=== PATIENT | female | born 1950 | race Caucasian/White ===

== ENCOUNTER 2019-08-23 22:21 | Inpatient (IN) | payer MEDICARE ==
--- NOTE | 2019-08-23 22:42 | RADIOLOGY REPORT (SQ) ---
INDICATION: s/s stroke. Left facial droop. Tremors. Difficulty speaking COMPARISON: None CORRELATION: None TECHNIQUE: Noncontrast spiral axial CT images were obtained from the skull base to vertex. This exam was performed according to our departmental dose-optimization program, which includes automated exposure control, adjustment of the mA and/or kV according to patient size and/or use of iterative reconstruction techniques. FINDINGS: There is no evidence of acute intracranial hemorrhage, midline shift, mass effect or mass lesion. Jerry-white differentiation is normal. There is no evidence of acute large territory infarct. Ventricles and extracerebral spaces are within normal limits, for age. The visualized paranasal sinuses are grossly clear. The orbits and eyeballs are unremarkable. The mastoid air cells are clear. Skull base and calvarium appear intact. IMPRESSION: No acute intracranial process is identified. The cause of the patient's neurologic symptoms is not identified on this examination.
[2019-08-23 22:48] LABS: ABSOLUTE BASOPHILS # (AUTO) 0.1 10^3/uL (0.0-0.2); ABSOLUTE EOSINOPHILS # (AUTO) 0.6 10^3/uL (0.0-0.6); ABSOLUTE LYMPHOCYTES (AUTO) 2.4 10^3/uL (0.5-4.7); ABSOLUTE MONOCYTES (AUTO) 0.4 10^3/uL (0.1-1.4); ABSOLUTE NEUT (AUTO) 5.3 10^3/uL (1.7-8.2); BASOPHILS % (AUTO) 1.1 % (0-2); EOSINOPHILS % (AUTO) 6.7 % (0-6); HEMATOCRIT 43.7 % (37.9-51.0); MEAN CORPUSCULAR HEMOGLOBIN 32.1 pg (27.0-33.4); MEAN CORPUSCULAR HGB CONC 34.4 g/dL (32.0-36.0); MEAN CORPUSCULAR VOLUME 93 fl (80-97); PLATELET COUNT 304 10^3/uL (150-450); RED BLOOD COUNT 4.69 10^6/uL (4.35-5.55); RED CELL DISTRIBUTION WIDTH 14.1 % (11.5-14.0); SEGMENTED NEUTROPHILS % (AUTO) 60.2 % (42-78); TOTAL CELLS COUNTED % (AUTO) 100 %; WHITE BLOOD COUNT 8.8 10^3/uL (4.0-10.5)
[2019-08-23 22:52] LABS: PROTHROMBIN TIME 12.1 SEC (11.4-15.4)
[2019-08-23 22:53] LABS: PARTIAL THROMBOPLASTIN TIME 22.5 SEC (23.5-35.8)
--- NOTE | 2019-08-23 22:55 | RADIOLOGY REPORT (SQ) ---
EXAM DESCRIPTION: [facility]: XR CHEST 1 VIEW CLINICAL HISTORY: 68 years Male; s/s stroke; COMPARISON: 02/24/2016 FINDINGS: Lungs are clear, with no focal infiltrate, pneumothorax, or pleural effusion. Mediastinum is within normal limits for this positioning. Bony structures are unremarkable. IMPRESSION: 1. No acute pulmonary findings.
[2019-08-23] MEDS ORDERED: ALTEPLASE INJ 100 MG VIAL IV ONE (22:59)
[2019-08-23 23:05] LABS: ALBUMIN 4.8 g/dL (3.5-5.0); ALKALINE PHOSPHATASE 89 U/L (38-126); ANION GAP 7 (5-19); ASPARTATE AMINO TRANSFERASE 26 U/L (17-59); BILIRUBIN,DIRECT 0.3 mg/dL (0.0-0.4); BILIRUBIN,TOTAL 0.4 mg/dL (0.2-1.3); BLOOD UREA NITROGEN 16 mg/dL (7-20); CALCIUM 9.5 mg/dL (8.4-10.2); CARBON DIOXIDE 28 mmol/L (22-30); CHLORIDE 101 mmol/L (98-107); CREATINE KINASE 38 U/L (55-170); GLUCOSE 170 mg/dL (75-110); POTASSIUM 4.8 mmol/L (3.6-5.0); TOTAL PROTEIN 7.3 g/dL (6.3-8.2)
[2019-08-23 23:18] LABS: TROPONIN I < 0.012 ng/mL
[2019-08-23] MEDS ORDERED: ONDANSETRON HCL INJ/PF 4 MG/2 ML SDV IV ONE (23:32)
--- NOTE | 2019-08-23 23:32 | ER Document Report ---
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 Patient last known normal at 7:30 PM on August 23, 2019 as per . Patient sent text that was a full coherent sentence at that time. Approximately half an hour prior to ED arrival patient arrived at home and found her to be altered and aphasic. states that patient has never had any prior episodes of such symptoms, was completely well prior to onset, and says patient has no history of brain cancer, brain bleed, any recent surgery, use of anticoagulation or antiplatelet therapy including aspirin, has no other medical history, and takes no medications. Associated symptoms: None - Related Data Allergies/Adverse Reactions: Penicillins Allergy (Severe, Verified 02/24/16 12:07) Anaphylaxis Sulfa (Sulfonamide Antibiotics) Allergy (Unknown, Verified 02/24/16 12:07) Anaphylaxis Past Medical History - General Information source: Relative - Social History Smoking Status: Unknown if Ever Smoked Family History: None - Past Medical History Cardiac Medical History: Reports: None Pulmonary Medical History: Reports: None Neurological Medical History: Reports: None Endocrine Medical History: Reports: None Other: leukoplakia Psychiatric Medical History: Reports: None Other: distant rotator cuff surgery Review of Systems - Review of Systems -: Yes ROS unobtainable due to patient's medical condition Physical Exam - Vital signs Vitals: Pulse Resp BP Pulse Ox 107 H 22 H 135/96 H 97 08/23/19 22:24 08/23/19 22:24 08/23/19 22:24 08/23/19 22:24 - Notes Notes: PHYSICAL EXAMINATION: GENERAL: Awake, alert, and in no acute distress. HEAD: Atraumatic, normocephalic. EYES: Pupils equal round and reactive, extra ocular movements intact, sclera anicteric, conjunctiva are normal. ENT: nares patent, moist mucous membranes. NECK: Normal range of motion, supple without lymphadenopathy, no carotid bruit LUNGS: Normal respiratory rate and effort, breath sounds clear to auscultation bilaterally and equal. No wheezes rales or rhonchi. HEART: Regular rate, no murmurs/rubs/gallops ABDOMEN: Soft, nontender, no masses EXTREMITIES: No pitting or edema. No cyanosis. NEUROLOGICAL: Awake, alert, oriented x0 2/2 aphasia. NIHSS 14 for aphasic, partial gaze palsy can be overcome, minor facial paralysis (right lower mild facial droop), right arm and right leg drift not hitting bed, ataxia in two limbs, no usable speech, severe dysarthria, and visual inattention. 5/5 strength in left arm and leg, 4/5 in right arm and leg. PSYCH: unable to assess 2/2 aphasia SKIN: Warm, Dry, normal turgor Course - Re-evaluation Re-evalutation: 08/23/19 23:59 On initial evaluation patient found to be a phasic and have right-sided weakness upper and lower with a right facial droop. Patient had CAT scan which showed no bleed and was brought to minor procedures room where I performed an NIH stroke scale which was 14. After lengthy discussion with patient's by phone, patient found to be a TPA candidate given lack of medical history precluding her , BP appropriate, fingerstick appropriate. Discussed the risks of TPA with patient's who is her next of kin as patient unable to consent given a aphasia. Explained to the risk of a debilitating or fatal bleed as a result of TPA and and discussed with him alternative treatment which was not administering TPA. consented to TPA over the phone and this consent was confirmed by ROSETTA Carrillo who also spoke to confirming his approval. TPA was administered as per protocol and ICU consulted at 11:17 PM. Patient's family allowed to see patient given critical condition. 08/24/19 00:24 On serial repeat examinations patient's right and leg and arm weakness appears to have improved but aphasia remains unchanged. We will continue to monitor BP, has been elevated intermittently but not consistently enough to require intervention yet. Patient accepted to ICU. Patient son and now in ED, discussed patient's status, prognosis, and treatment plan with them both at length. - Vital Signs Vital signs: Temp Pulse Resp BP Pulse Ox 97.8 F 74 16 142/67 H 96 08/24/19 01:46 08/24/19 01:48 08/24/19 01:48 08/24/19 01:48 08/24/19 01:48 - Laboratory Result Diagrams: 08/23/19 22:25 08/23/19 22:25 Laboratory results interpreted by me: 08/23/19 08/23/19 08/23/19 22:25 22:25 22:25 RDW 14.1 H Eos % (Auto) 6.7 H APTT 22.5 L Sodium 136.1 L Glucose 170 H POC Glucose Creatine Kinase 38 L 08/23/19 22:33 RDW Eos % (Auto) APTT Sodium Glucose POC Glucose 147 H Creatine Kinase Critical Care Note - Critical Care Note Comments: 31 minutes spent at patient's bedside administering serial NIH stroke scale exams, discussing informed consent, patient status, and obtaining history from patient's family. Discharge - Discharge Clinical Impression: Stroke Qualifiers: CVA mechanism: unspecified Qualified Code(s): I63.9 - Cerebral infarction, unspecified Condition: Critical Disposition: ADMITTED INPATIENT Admitting Provider: Jessa (Regulatory Law Specialist) Unit Admitted: ICU
--- NOTE | 2019-08-24 03:02 | CRITICAL CARE ADMISSION REPORT ---
<ROBERT HODGES - Last Filed: 08/24/19 02:40> HPI Date:: 08/24/19 Time:: 02:00 Reason for ICU Reason:: Cerebral Vascular Accident HPI: 68-year-old female with no significant past medical history. She has a normal baseline mental status and is completely independent. She presented with 3 hours of altered mental status, aphasia and weakness. Upon evaluation in the ED, her NIH stroke scale was 14. CAT scan showed no bleed. She was started on TPA and has shown some mild improvement in her mental status. She continues to have right-sided weakness with right-sided facial droop. She follows commands well but has expressive aphasia. Left-sided upper and lower extremity with normal strength. She was admitted to the intensive care unit due to TPA therapy and close monitoring. History obtained from:: - Diagnosis/Plan (1) Stroke Qualifiers: CVA mechanism: unspecified Qualified Code(s): I63.9 - Cerebral infarction, unspecified Is this a current diagnosis for this admission?: Yes Plan: Status post TPA Continue close monitoring with mend exam every 15 minutes x2 hours followed by 30 minutes x 6 hours followed by every 1 hour x16 hours. Monitor closely for signs of bleeding Patient to remain n.p.o. for now. Avoid sedating medications unless required for any seizure activity. Maintain SPO2 greater than 95%. Past Medical History Cardiac Medical History: Reports: None Pulmonary Medical History: Reports: None Neurological Medical History: Reports: None Endocrine Medical History: Reports: None Psychiatric Medical History: Reports: None Past Surgical History Past Surgical History: Reports: Orthopedic Surgery - right rotator cuff Social/Family History - Social History Smoking Status: Unknown if Ever Smoked - Medication/Allergies Home Medications: No Home Medications 08/24/19 Allergies/Adverse Reactions: Penicillins Allergy (Severe, Verified 02/24/16 12:07) Anaphylaxis Sulfa (Sulfonamide Antibiotics) Allergy (Unknown, Verified 02/24/16 12:07) Anaphylaxis Review of Systems Gastrointestinal: ABSENT: melena Genitourinary: ABSENT: hematuria Neurological: PRESENT: as per HPI, abnormal movements, abnormal speech, focal weakness Hematologic/Lymphatic: ABSENT: easy bleeding Physical Exam Vital Signs: Temp Pulse Resp BP Pulse Ox 98.2 F 73 12 149/63 H 98 08/24/19 00:00 08/24/19 01:11 08/24/19 01:11 08/24/19 01:11 08/24/19 01:11 Intake & Output 08/22/19 08/23/19 08/24/19 06:59 06:59 06:59 Weight 65.771 kg Weight/Height Weight 65.771 kg Height 5 ft 1 in Head exam: PRESENT: atraumatic, normocephalic Eye exam: PRESENT: EOMI, PERRLA Mouth exam: PRESENT: neck supple Neck exam: ABSENT: carotid bruit, JVD Respiratory exam: PRESENT: symmetrical, unlabored. ABSENT: accessory muscle use, rales, rhonchi, tachypnea, wheezes Cardiovascular exam: PRESENT: RRR Vascular exam: PRESENT: normal capillary refill GI/Abdominal exam: PRESENT: normal bowel sounds, soft Extremities exam: PRESENT: full ROM Neurological exam: PRESENT: awake, aphasic Skin exam: PRESENT: normal color, warm Laboratory/Radiographs Laboratory Results: 08/23/19 22:25 08/23/19 22:25 08/23/19 08/23/19 22:25 22:25 WBC 8.8 RBC 4.69 Hgb 15.0 Hct 43.7 MCV 93 MCH 32.1 MCHC 34.4 RDW 14.1 H Plt Count 304 Seg Neutrophils % 60.2 Sodium 136.1 L Potassium 4.8 Chloride 101 Carbon Dioxide 28 Anion Gap 7 BUN 16 Creatinine 0.71 Est GFR ( Amer) > 60 Glucose 170 H Calcium 9.5 Total Bilirubin 0.4 AST 26 Alkaline Phosphatase 89 Total Protein 7.3 Albumin 4.8 08/23/19 08/23/19 22:25 22:25 Creatine Kinase 38 L CK-MB (CK-2) 0.60 Troponin I < 0.012 Impressions: Chest X-Ray 08/23/19 22:24 IMPRESSION: 1. No acute pulmonary findings. Head CT 08/23/19 22:24 IMPRESSION: No acute intracranial process is identified. The cause of the patient's neurologic symptoms is not identified on this examination. All labs, radiographs, diagnostic studies and EKGs were personally reviewed: Yes In addition, reports of radiographic and diagnostic studies were read: Yes Critical Time Critical Time (minutes): 65 -: The care of a critically ill patient is dynamic. This note represents a static moment in the admission process. Orders and treatments may be given simultaneously and urgently, and time is not liability claims representative of the treatment process. This patient requires Critical Care secondary to life threatening organ or limb dysfunction. Without Critical Care services, the patient is at risk for increased mortality and morbidity. <SUJATA PEREA - Last Filed: 08/24/19 17:16> HPI - . Plan Summary: I personally saw and evaluated the patient. Discussed case and care with FIFI Hodges. Agree with care plans and findings We see my note which accompanies this note due to the complex nature of this case. Physical Exam Vital Signs: Temp Pulse Resp BP Pulse Ox 98.8 F 89 17 154/82 H 93 08/24/19 16:00 08/24/19 16:00 08/24/19 16:00 08/24/19 15:56 08/24/19 16:00 Intake & Output 08/23/19 08/24/19 08/25/19 06:59 06:59 06:59 Output Total 350 1100 Balance -350 -1100 Weight 67.3 kg Weight/Height Weight 67.3 kg Height 5 ft 1 in Laboratory/Radiographs Laboratory Results: 08/24/19 06:57 08/24/19 06:57 08/23/19 08/23/19 08/24/19 22:25 22:25 06:57 WBC 8.8 9.4 RBC 4.69 4.30 Hgb 15.0 13.7 Hct 43.7 39.8 MCV 93 93 MCH 32.1 31.8 MCHC 34.4 34.3 RDW 14.1 H 14.2 H Plt Count 304 275 Seg Neutrophils % 60.2 Sodium 136.1 L Potassium 4.8 Chloride 101 Carbon Dioxide 28 Anion Gap 7 BUN 16 Creatinine 0.71 Est GFR ( Amer) > 60 Glucose 170 H Calcium 9.5 Total Bilirubin 0.4 AST 26 Alkaline Phosphatase 89 Total Protein 7.3 Albumin 4.8 08/24/19 06:57 WBC RBC Hgb Hct MCV MCH MCHC RDW Plt Count Seg Neutrophils % Sodium 137.1 Potassium 4.6 Chloride 103 Carbon Dioxide 29 Anion Gap 5 BUN 15 Creatinine 0.55 Est GFR ( Amer) > 60 Glucose 115 H Calcium 9.1 Total Bilirubin AST Alkaline Phosphatase Total Protein Albumin 08/23/19 08/23/19 22:25 22:25 Creatine Kinase 38 L CK-MB (CK-2) 0.60 Troponin I < 0.012 Impressions: Chest X-Ray 08/23/19 22:24 IMPRESSION: 1. No acute pulmonary findings. Head CT 08/23/19 22:24 IMPRESSION: No acute intracranial process is identified. The cause of the patient's neurologic symptoms is not identified on this examination. Head CTA 08/24/19 00:00 IMPRESSION: NO CTA EVIDENCE OF STENOSIS OR ANEURYSM OF THE [place] OF [place]. Neck CTA 08/24/19 00:00 IMPRESSION: NORMAL CTA OF THE EXTRA-CRANIAL CAROTID AND VERTEBRAL ARTERIES. Critical Time -: The care of a critically ill patient is dynamic. This note represents a static moment in the admission process. Orders and treatments may be given simultaneously and urgently, and time is not liability claims representative of the treatment process. This patient requires Critical Care secondary to life threatening organ or limb dysfunction. Without Critical Care services, the patient is at risk for increased mortality and morbidity.
[2019-08-24] MEDS ORDERED: DEXTROSE 50%-WATER 25 GM/50 ML DISP.SYRIN IV PRN ×2 (03:53)
[2019-08-24] MEDS ORDERED: DEXTROSE 40% GEL 15 GM TUBE PO PRN ×2 (03:53)
[2019-08-24] MEDS ORDERED: GLUCAGON,HUMAN RECOMB 1 MG INJ SUBCUT PRN (03:53)
[2019-08-24 07:11] LABS: HEMATOCRIT 39.8 % (36.0-47.0); HEMOGLOBIN 13.7 g/dL (12.0-15.5); MEAN CORPUSCULAR HEMOGLOBIN 31.8 pg (27.0-33.4); MEAN CORPUSCULAR HGB CONC 34.3 g/dL (32.0-36.0); MEAN CORPUSCULAR VOLUME 93 fl (80-97); PLATELET COUNT 275 10^3/uL (150-450); RED CELL DISTRIBUTION WIDTH 14.2 % (11.5-14.0); WHITE BLOOD COUNT 9.4 10^3/uL (4.0-10.5)
[2019-08-24 07:23] LABS: ANION GAP 5 (5-19); BLOOD UREA NITROGEN 15 mg/dL (7-20); CALCIUM 9.1 mg/dL (8.4-10.2); CARBON DIOXIDE 29 mmol/L (22-30); CHLORIDE 103 mmol/L (98-107); GLUCOSE 115 mg/dL (75-110); POTASSIUM 4.6 mmol/L (3.6-5.0)
--- NOTE | 2019-08-24 10:05 | RADIOLOGY REPORT (SQ) ---
EXAM DESCRIPTION: CTA HEAD IMAGES COMPLETED DATE/TIME: 08/24/2019 8:58 am REASON FOR STUDY: Mental Status Change COMPARISON: None. TECHNIQUE: Post IV contrast scanning, thin section axial imaging through the brain to evaluate the a rterial structures. Source and MIP images are saved and reviewed on PACS. Advanced 3D imaging as volume-rendering, MIPs, SSD performed? yes All CT scanners at this facility use dose modulation, iterative reconstruction, and/or weight based d osing when appropriate to reduce radiation dose to as low as reasonably achievable (ALARA). [facility]: Dose Right [facility]: CareDose [facility]: Dose Right [facility]: Teradose 4D [facility]: Picovico CONTRAST TYPE AND DOSE: 80 mL Omnipaque 350 RENAL FUNCTION: Not available at time of dictation. LIMITATIONS: None. FINDINGS: [place]: The anterior, middle, posterior cerebral arteries are all patent. No ev idence of aneurysm or focal stenosis. POSTERIOR CIRCULATION: The distal vertebral arteries are patent as is the basilar artery. No aneurysm . BRAIN: No gross enhancing lesions as visualized. The superior cerebral hemispheres are not included in the field of view. BONES: Intact as visualized. SINUSES: No fluid or mucosal thickening. OTHER: No other significant finding. IMPRESSION: NO CTA EVIDENCE OF STENOSIS OR ANEURYSM OF THE [place]. TECHNICAL DOCUMENTATION: JOB ID: [id number] Quality ID # 436: Final reports with documentation of one or more dose reduction techniques (e.g., Au tomated exposure control, adjustment of the mA and/or kV according to patient size, use of iterative reconstruction technique) 2010 [employer]- All Rights Reserved Reading location - IP/workstation name: [email or web address]
--- NOTE | 2019-08-24 10:06 | RADIOLOGY REPORT (SQ) ---
EXAM DESCRIPTION: CTA NECK IMAGES COMPLETED DATE/TIME: 08/24/2019 8:58 am REASON FOR STUDY: Mental Status Change COMPARISON: None. TECHNIQUE: Axial dynamic scanning technique with dynamic contrast enhancement through the extra-gantry crane operator nial carotid and vertebral arteries. Multiplanar reconstruction. 3-D MIPS and Volume-rendered imag es acquired at the workstation and saved to PACS. Images are reviewed in soft tissue, bone, lung w indows. All CT scanners at this facility use dose modulation, iterative reconstruction, and/or weight based d osing when appropriate to reduce radiation dose to as low as reasonably achievable (ALARA). [facility]: Dose Right [facility]: CareDose [facility]: Dose Right [facility]: Teradose 4D [facility]: Reconnex CONTRAST TYPE AND DOSE: contrast/concentration: Isovue 350.00 mg/ml; Total Contrast Delivered: 80.0 ml; Total Saline Delivered: 75.0 ml RENAL FUNCTION: Not available at time of dictation. LIMITATIONS: None. FINDINGS: AORTIC ARCH: Normal three-vessel origin. Bilateral subclavian arteries are patent. No d issection. RIGHT CAROTIDS: Patent common, internal and external carotid arteries without suggestion of significa nt stenosis or irregular plaque. No dissection. RIGHT VERTEBRAL: Patent. No dissection. LEFT CAROTIDS: Patent common, internal and external carotid arteries without suggestion of significan t stenosis or irregular plaque. No dissection. The left internal carotid artery is very tortuous. LEFT VERTEBRAL: Patent. No dissection. OTHER: No other significant finding. OTHER: 3-D reconstructions confirm findings. IMPRESSION: NORMAL CTA OF THE EXTRA-CRANIAL CAROTID AND VERTEBRAL ARTERIES. COMMENT: Quality ID #[id number]: Measurements of distal internal carotid diameter were used as the denomina tor for stenosis measurement. TECHNICAL DOCUMENTATION: JOB ID: [id number] Quality ID # 436: Final reports with documentation of one or more dose reduction techniques (e.g., Au tomated exposure control, adjustment of the mA and/or kV according to patient size, use of iterative reconstruction technique) 2010 [employer]- All Rights Reserved Reading location - IP/workstation name: [email or web address]
--- NOTE | 2019-08-24 10:07 | EKG REPORT ---
SEVERITY:- NORMAL ECG - SINUS RHYTHM : Confirmed by: Grace Carpenter MD 24-Aug-2019 10:06:50
--- NOTE | 2019-08-24 22:01 | Progress Note ---
Provider Note Provider Note: Urgently saw and evaluated and examined this patient in follow-up to [facility]. We will plan findings and care. My evaluation NIH score is 4. Speech has improved and is only minimally slurred and affected with certain words. She had an earlier headache which is improved and was noted over her left eye Review of CT scan showed no evidence of ischemia and I asked for CT angiogram of the neck and cerebral vessels. Unfortunately there is no availability for perfusion studies. No demonstrable large artery obstruction was noted. She denies any chest pain. No shortness of breath. Have ordered echocardiogram, physical therapy and Occupational Therapy as well as speech eval. Need to start antiplatelet and statin therapy 24 hours after TPA was given. She needs to be maintained in the ICU secondary to the use of TPA. Should any neurological decline occur she will need to be sent back to CT scan to rule out bleed. We will have case management involved for rehabilitation. New cardiac monitoring to determine if atrial fibrillation is a cause. Cardiogram as noted above. Have ordered urine specimen notably female patients with stroke symptoms can have urinary tract infections which precede the ictus We will remove Mayorga after the 24-hour TPA. Has resolved. Keep blood pressure below 180. Heart antihypertensive therapy within 24 hours. Total critical care time 60 minutes in evaluation the patient repeat neurological exam and evaluation of radiographic studies
[2019-08-25 01:42] LABS: APPEARANCE,URINE SLIGHTLY-CLOUDY; BILIRUBIN,URINE NEGATIVE (NEGATIVE); COLOR,URINE YELLOW; GLUCOSE, URINE NEGATIVE (NEGATIVE); KETONES,URINE 80 mg/dL (NEGATIVE); PROTEIN,URINE 30 mg/dL (NEGATIVE); URINE SPECIFIC GRAVITY 1.029; UROBILINOGEN,URINE NEGATIVE mg/dL (<2.0)
[2019-08-25 04:17] LABS: ABSOLUTE BASOPHILS # (AUTO) 0.1 10^3/uL (0.0-0.2); ABSOLUTE EOSINOPHILS # (AUTO) 0.3 10^3/uL (0.0-0.6); ABSOLUTE LYMPHOCYTES (AUTO) 2.6 10^3/uL (0.5-4.7); ABSOLUTE MONOCYTES (AUTO) 0.8 10^3/uL (0.1-1.4); ABSOLUTE NEUT (AUTO) 6.8 10^3/uL (1.7-8.2); BASOPHILS % (AUTO) 0.7 % (0-2); EOSINOPHILS % (AUTO) 2.8 % (0-6); HEMATOCRIT 40.6 % (36.0-47.0); LYMPHOCYTES % (AUTO) 24.6 % (13-45); MEAN CORPUSCULAR HEMOGLOBIN 31.6 pg (27.0-33.4); MEAN CORPUSCULAR HGB CONC 34.4 g/dL (32.0-36.0); MEAN CORPUSCULAR VOLUME 92 fl (80-97); MONOCYTES % (AUTO) 7.4 % (3-13); PLATELET COUNT 267 10^3/uL (150-450); RED BLOOD COUNT 4.43 10^6/uL (3.72-5.28); RED CELL DISTRIBUTION WIDTH 14.2 % (11.5-14.0); SEGMENTED NEUTROPHILS % (AUTO) 64.5 % (42-78); TOTAL CELLS COUNTED % (AUTO) 100 %; WHITE BLOOD COUNT 10.5 10^3/uL (4.0-10.5)
[2019-08-25] MEDS ORDERED: RINGERS SOLUTION,LACTATED 1,000 ML IV PRN (04:18)
[2019-08-25 04:39] LABS: ANION GAP 6 (5-19); BLOOD UREA NITROGEN 15 mg/dL (7-20); CALCIUM 9.2 mg/dL (8.4-10.2); CARBON DIOXIDE 26 mmol/L (22-30); CHLORIDE 105 mmol/L (98-107); GLUCOSE 101 mg/dL (75-110); PHOSPHORUS 3.7 mg/dL (2.5-4.5); POTASSIUM 4.1 mmol/L (3.6-5.0); TRIGLYCERIDES 102 mg/dL (<150)
[2019-08-25 04:49] LABS: DIRECT LDL 192 mg/dL (<100)
--- NOTE | 2019-08-25 11:09 | Progress Note ---
Provider Note Provider Note: 68-year-old female with no significant past medical history came to the emergency room on August 22 around midnight with complaints of 3 hours of altered mental status, aphasia and weakness. Her NIH stroke scale is [address] scan did not show any bleed. Patient was given TPA and was admitted to ICU. Medical consult was called to downgrade the patient today. Patient's aphasia resolved right-sided weakness improving mild residual deficit in the right arm. Still have visual problems difficulty in reading. But she is able to count my fingers when I am standing 10 feet away. CTA of the head and neck are negative. Plan is to do the MRI of the brain today to start her on aspirin, Plavix and statins.Echocardiogram was requested and it is pending. OT PT consult was requested. To discontinue IV fluids. And to start on her blood pressure medications if the blood pressures are persistently high. On examination alert and awake communicating well. Pupils are equal and react to light accommodation. Neck was supple no JVD no carotid bruit. Chest bilateral entry was decreased no wheezing no crepitations. S1-S2 present. Abdominal bowel sounds are present. Extremities peripheral pulses are present no pedal edema. Plan is to downgrade her to IMCU today. To repeat the labs tomorrow.
[2019-08-25] MEDS: ASPIRIN 81 MG TABLET, CHEWABLE PO SCH (12:18)
[2019-08-25] MEDS: CLOPIDOGREL BISULFATE 75 MG TABLET PO SCH (12:18)
--- NOTE | 2019-08-25 13:40 | RADIOLOGY REPORT (SQ) ---
EXAM DESCRIPTION: MRI HEAD WITHOUT IMAGES COMPLETED DATE/TIME: 08/25/2019 1:21 pm REASON FOR STUDY: stroke COMPARISON: None. TECHNIQUE: Multiplanar imaging includes non-contrasted T1, T2, FLAIR, and diffusion with ADC map seq uences. Images stored on PACS. LIMITATIONS: None. FINDINGS: ANATOMY: No anomalies. Normal vascular flow voids. Pituitary fossa normal. CSF SPACES: Normal in size and contour. No hemorrhage. CEREBRUM: Sulci and gyri normal in size and contour. Increased FLAIR and T2 signal in the medial lef t occipital and temporal lobe and in the posterior left thalamus. No evidence of hemorrhage, mass, o r extraaxial fluid collection. POSTERIOR FOSSA: No signal alteration. No hemorrhage. No edema, masses or mass effect. Internal sarthak tory canals, cerebello-pontine angles, mastoids normal. DIFFUSION IMAGING: Restricted diffusion in the medial left occipital and temporal lobe and in the pos terior left thalamus. ORBITS: No masses. Globes normal. PARANASAL SINUSES: No fluid levels. Mucosa normal. OTHER: No other significant finding. IMPRESSION: INVOLVING INFARCT IN THE MEDIAL LEFT OCCIPITAL AND TEMPORAL LOBE AND IN THE POSTERIOR LE FT THALAMUS. EVIDENCE OF ACUTE STROKE: YES. LEFT ACADEMIC REGISTRAR COMMENT: The findings were sent to the Radiology Results Communication Center at 13:33 on 08/25/2019 to be communicated to a licensed caregiver. TECHNICAL DOCUMENTATION: JOB ID: [id number] 2010 [employer]- All Rights Reserved Reading location - IP/workstation name: [email or web address]
--- NOTE | 2019-08-25 13:43 | RADIOLOGY REPORT (SQ) ---
EXAM DESCRIPTION: MRA HEAD WITHOUT IMAGES COMPLETED DATE/TIME: 08/25/2019 1:21 pm REASON FOR STUDY: stroke COMPARISON: CTA dated 08/24/2019. TECHNIQUE: Axial 3-D [id number] acquisition imaging performed through the brain in the area of t he [place] of [place]. Images reformatted using 3-D MIPS. LIMITATIONS: None. FINDINGS: SOURCE IMAGES: No unexpected findings on source images. No large masses. 3-D MIP: No aneurysm. No occlusions. No significant stenosis. OTHER: No other significant finding. IMPRESSION: NORMAL MRA OF THE [place] OF [place]. TECHNICAL DOCUMENTATION: JOB ID: [id number] 2010 [employer]- All Rights Reserved Reading location - IP/workstation name: [email or web address]
[2019-08-25] MEDS: PANTOPRAZOLE SODIUM 40 MG TABLET.DR PO SCH (16:52)
[2019-08-25] MEDS: ATORVASTATIN CALCIUM 40 MG TABLET PO SCH (21:35)
--- NOTE | 2019-08-25 21:50 | XCELERA REPORT ---
[address] [address] Transthoracic Echocardiogram Report Name: YOSEF HOLLIS Age: 68 yrs Gender: Female : 1950 Patient Status: Inpatient Patient Location: [address] [place], [place] [id number] Study Date: 08/25/2019 01:40 PM Height: 61 in Weight: 148 lb BSA: 1.7 m2 Procedure: A two-dimensional transthoracic echocardiogram with color flow and Doppler was performed. Study Quality: Poor. POOR ENDOCARDIAL VISUALISATION. Reason For Study: STROKE / CVA History: STROKE / CVA. Ordering Physician: SUJATA PEREA Performed By: Cheli Doan Interpretation Summary There is no obvious cardiac source of embolus noted on this transthoracic echocardiogram. Follow-up with a LUIS ARMANDO is suggested if cardiac source is still suspected. POOR ENDOCARDIAL VISUALISATION. The left ventricle is normal in size. There is normal left ventricular wall thickness. LV EF is Probably 60% Left ventricular systolic function is normal. Doppler measurements suggest impaired left ventricular relaxation, which is associated with grade I/IV or mild diastolic dysfunction Probably no regional wall motion abnormality. The right ventricle is not well visualized secondary to technical limitations Right atrium not well visualized secondary to technical limitations There is no evidence of mitral valve prolapse. There is no vegetation seen on the mitral valve. There is no mitral valve stenosis. There is a trace amount of mitral regurgitation There is no aortic valvular vegetation. There is no aortic valve stenosis There is no LVOT obstruction. No aortic regurgitation is present. There is no tricuspid stenosis. Probably no TR.Cannot assess RVSP due to lack of TR jet. There is no pulmonic valvular stenosis. There is a trace amount of pulmonic regurgitation The aortic root is normal size. The inferior vena cava appeared normal and decreased > 50% with respiration (RAP 5-10 mmHg) There is no pericardial effusion. There is no obvious cardiac source of embolus noted on this transthoracic echocardiogram. Follow-up with a LUIS ARMANDO is suggested if cardiac source is still suspected No ASD , VSD ,or PFO seen.Probable mild interatrial septal lipomatous hypertrophy. MMode/2D Measurements & Calculations RVDd: 1.7 cm LVIDd: 4.6 cm FS: 31.4 % Ao root diam: 2.8 cm IVSd: 0.96 cm LVIDs: 3.1 cm EDV(Teich): 96.4 ml Ao root area: 6.2 cm2 LVPWd: 0.80 cm ESV(Teich): 39.2 ml EF(Teich): 59.4 % Doppler Measurements & Calculations MV E max felipe: MV dec slope: Ao V2 max: LV V1 max P.2 cm/sec 385.6 cm/sec2 133.5 cm/sec 4.6 mmHg MV A max felipe: MV dec time: 0.22 sec Ao max PG: LV V1 max: 96.1 cm/sec 7.1 mmHg 106.9 cm/sec MV E/A: 0.87 PA V2 max: PI end-d felipe: 75.5 cm/sec 73.7 cm/sec PA max P.3 mmHg Left Ventricle The left ventricle is normal in size. There is normal left ventricular wall thickness. LV EF is Probably 60%. Left ventricular systolic function is normal. Doppler measurements suggest impaired left ventricular relaxation, which is associated with grade I/IV or mild diastolic dysfunction. Probably no regional wall motion abnormality. No ASD , VSD ,or PFO seen.Probable mild interatrial septal lipomatous hypertrophy. Right Ventricle The right ventricle is not well visualized secondary to technical limitations. Atria Right atrium not well visualized secondary to technical limitations. The left atrial size is normal. Mitral Valve There is no evidence of mitral valve prolapse. There is no vegetation seen on the mitral valve. There is no mitral valve stenosis. There is a trace amount of mitral regurgitation. Aortic Valve There is no aortic valvular vegetation. There is no aortic valve stenosis. There is no LVOT obstruction. No aortic regurgitation is present. Tricuspid Valve There is no tricuspid stenosis. Probably no TR.Cannot assess RVSP due to lack of TR jet. Pulmonic Valve There is no pulmonic valvular stenosis. There is a trace amount of pulmonic regurgitation. Great Vessels The aortic root is normal size. The inferior vena cava appeared normal and decreased > 50% with respiration (RAP 5-10 mmHg). Effusions There is no pericardial effusion. : SUJATA PEREA Lakshmi
[2019-08-26 05:32] LABS: ABSOLUTE BASOPHILS # (AUTO) 0.1 10^3/uL (0.0-0.2); ABSOLUTE EOSINOPHILS # (AUTO) 0.4 10^3/uL (0.0-0.6); ABSOLUTE LYMPHOCYTES (AUTO) 3.4 10^3/uL (0.5-4.7); ABSOLUTE MONOCYTES (AUTO) 0.7 10^3/uL (0.1-1.4); ABSOLUTE NEUT (AUTO) 4.5 10^3/uL (1.7-8.2); BASOPHILS % (AUTO) 0.9 % (0-2); EOSINOPHILS % (AUTO) 4.7 % (0-6); HEMATOCRIT 39.2 % (36.0-47.0); HEMOGLOBIN 13.6 g/dL (12.0-15.5); LYMPHOCYTES % (AUTO) 36.9 % (13-45); MEAN CORPUSCULAR HEMOGLOBIN 31.7 pg (27.0-33.4); MEAN CORPUSCULAR HGB CONC 34.6 g/dL (32.0-36.0); MEAN CORPUSCULAR VOLUME 92 fl (80-97); PLATELET COUNT 251 10^3/uL (150-450); RED BLOOD COUNT 4.28 10^6/uL (3.72-5.28); RED CELL DISTRIBUTION WIDTH 13.7 % (11.5-14.0); SEGMENTED NEUTROPHILS % (AUTO) 49.5 % (42-78); TOTAL CELLS COUNTED % (AUTO) 100 %; WHITE BLOOD COUNT 9.1 10^3/uL (4.0-10.5)
[2019-08-26 05:54] LABS: ALKALINE PHOSPHATASE 71 U/L (38-126); ASPARTATE AMINO TRANSFERASE 21 U/L (14-36); BILIRUBIN,TOTAL 0.8 mg/dL (0.2-1.3); BLOOD UREA NITROGEN 11 mg/dL (7-20); CALCIUM 9.2 mg/dL (8.4-10.2); CARBON DIOXIDE 28 mmol/L (22-30); CHLORIDE 103 mmol/L (98-107); GLUCOSE 99 mg/dL (75-110); POTASSIUM 4.2 mmol/L (3.6-5.0); TOTAL PROTEIN 6.5 g/dL (6.3-8.2)
[2019-08-26 06:09] LABS: ANION GAP 5 (5-19)
[2019-08-26] MEDS: PANTOPRAZOLE SODIUM 40 MG TABLET.DR PO SCH ×2 (06:38→17:33)
--- NOTE | 2019-08-26 07:55 | PDOC PROGRESS REPORT ---
Subjective Progress Note for:: 08/26/19 Subjective:: 08/26/[id number]f-old female with no significant past medical history admitted with aphasia, right-sided weakness, altered mental status. CT head is negative in the ER a TPA was given. CT a of the head and neck was done negative for acute pathology. MRI of the brain without contrast was done it indicates new infarct. Was started on aspirin, Plavix, statins 24 hours after administration of the TPA. PT OT consult was done [facility] This morning alert awake communicating well not in distress. Still have visual problems and slight droop on the left side of the face and mild weakness on the right upper arm. blood Pressures are stable. Reason For Visit: CEREBRAL VASCULAR ACCIDENT Physical Exam Vital Signs: Temp Pulse Resp BP Pulse Ox 98.8 F 78 18 144/71 H 93 08/26/19 03:49 08/26/19 07:00 08/26/19 07:00 08/26/19 07:00 08/26/19 07:00 Intake & Output 08/25/19 08/26/19 08/27/19 06:59 06:59 06:59 Intake Total 1240 Output Total 1515 1540 Balance -1515 -300 Weight 67.3 kg 67.3 kg General appearance: PRESENT: no acute distress, well-developed Head exam: PRESENT: atraumatic Eye exam: PRESENT: PERRLA Ear exam: PRESENT: normal external ear exam Mouth exam: PRESENT: moist, tongue midline Neck exam: ABSENT: carotid bruit, JVD, lymphadenopathy, thyromegaly Respiratory exam: PRESENT: clear to auscultation stephanie. ABSENT: rales, rhonchi, wheezes Cardiovascular exam: PRESENT: RRR. ABSENT: diastolic murmur, rubs, systolic murmur GI/Abdominal exam: PRESENT: normal bowel sounds, soft. ABSENT: distended, guarding, mass, organolmegaly, rebound, tenderness Rectal exam: PRESENT: deferred Extremities exam: PRESENT: full ROM. ABSENT: calf tenderness, clubbing, pedal edema Neurological exam: PRESENT: alert, awake, oriented to person, oriented to place, oriented to time, oriented to situation, other - ACAs resolved mild weakness in the right upper arm and still having the mild visual problems.. ABSENT: motor sensory deficit Psychiatric exam: PRESENT: appropriate affect, normal mood. ABSENT: homicidal ideation, suicidal ideation Skin exam: PRESENT: dry, intact, warm. ABSENT: cyanosis, rash Results Laboratory Results: 08/26/19 04:40 08/26/19 04:40 08/26/19 08/26/19 04:40 04:40 WBC 9.1 RBC 4.28 Hgb 13.6 Hct 39.2 MCV 92 MCH 31.7 MCHC 34.6 RDW 13.7 Plt Count 251 Seg Neutrophils % 49.5 Sodium 136.3 L Potassium 4.2 Chloride 103 Carbon Dioxide 28 Anion Gap 5 BUN 11 Creatinine 0.60 Est GFR ( Amer) > 60 Glucose 99 Calcium 9.2 Magnesium 2.2 Total Bilirubin 0.8 AST 21 Alkaline Phosphatase 71 Total Protein 6.5 Albumin 4.0 08/23/19 08/23/19 22:25 22:25 Creatine Kinase 38 L CK-MB (CK-2) 0.60 Troponin I < 0.012 Impressions: Chest X-Ray 08/23/19 22:24 IMPRESSION: 1. No acute pulmonary findings. Head CT 08/23/19 22:24 IMPRESSION: No acute intracranial process is identified. The cause of the patient's neurologic symptoms is not identified on this examination. Head CTA 08/24/19 00:00 IMPRESSION: NO CTA EVIDENCE OF STENOSIS OR ANEURYSM OF THE [place]. Neck CTA 08/24/19 00:00 IMPRESSION: NORMAL CTA OF THE EXTRA-CRANIAL CAROTID AND VERTEBRAL ARTERIES. Brain MRI with MRA 08/25/19 00:00 IMPRESSION: NORMAL MRA OF THE [place]. Head MRI 08/25/19 11:00 IMPRESSION: INVOLVING INFARCT IN THE MEDIAL LEFT OCCIPITAL AND TEMPORAL LOBE AND IN THE POSTERIOR LEFT THALAMUS. EVIDENCE OF ACUTE STROKE: YES. 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 CT head was negative for acute bleed CTA of the neck and head was done negative for stenosis MRA of the brain was done normal [place]. MRI of the brain without contrast indicates infarct in the medial left occipital and temporal lobe and in the posterior left thalamus. Core measures are implemented no problem with swallowing. Depression fall seizure precautions are implemented. She is already on aspirin, statin, Plavix. Lipid panel was done. Hemoglobin A1c was done. It is 5.7. PT OT consult was requested. Cardiogram was done EF is 60%. (2) HTN (hypertension) Is this a current diagnosis for this admission?: Yes Plan: 08/26/2019-on admission patient blood pressures are elevated latest blood pressure is 144/71. Improved. Plan is to start her on lisinopril 10 mg p.o. daily. We will watch for the kidney function.
[2019-08-26] MEDS: CLOPIDOGREL BISULFATE 75 MG TABLET PO SCH (10:17)
[2019-08-26] MEDS: ASPIRIN 81 MG TABLET, CHEWABLE PO SCH (10:17)
[2019-08-26] MEDS: LISINOPRIL 10 MG TABLET PO SCH (10:17)
[2019-08-26] MEDS: ATORVASTATIN CALCIUM 40 MG TABLET PO SCH (21:32)
[2019-08-27] MEDS: PANTOPRAZOLE SODIUM 40 MG TABLET.DR PO SCH (06:50)
[2019-08-27] MEDS: LISINOPRIL 10 MG TABLET PO SCH (10:27)
[2019-08-27] MEDS: ASPIRIN 81 MG TABLET, CHEWABLE PO SCH (10:27)
[2019-08-27] MEDS: CLOPIDOGREL BISULFATE 75 MG TABLET PO SCH (10:27)
--- NOTE | 2019-08-27 10:40 | PDOC DISCHARGE SUMMARY ---
Impression - Admit/DC Date/PCP Admission Date/Primary Care Provider: 08/24/19 00:44 Discharge Date: 08/27/19 - Discharge Diagnosis (1) Stroke Is this a current diagnosis for this admission?: Yes (2) HTN (hypertension) Is this a current diagnosis for this admission?: Yes - Assessment Summary: (1) Stroke Qualifiers: CVA mechanism: unspecified Qualified Code(s): I63.9 - Cerebral infarction, unspecified Is this a current diagnosis for this admission?: Yes Plan: 08/26/2019-patient admitted with aphasia, right-sided weakness and altered mental status TPA was given in the emergency room. CT head was negative for acute bleed CTA of the neck and head was done negative for stenosis MRA of the brain was done normal [place]. MRI of the brain without contrast indicates infarct in the medial left occipital and temporal lobe and in the posterior left thalamus. Core measures are implemented no problem with swallowing. Depression fall seizure precautions are implemented. She is already on aspirin, statin, Plavix. Lipid panel was done. Hemoglobin A1c was done. It is 5.7. PT OT consult was requested. Cardiogram was done EF is 60%. 08/27/2019-patient recovered very well. On examination today alert and awake oriented communicating well expressing desire to go home. Still complaining of mild visual defects. No problems swallowing. Very minimal sensory deficits on the right side. Patient expressing desire to go home with outpatient physical therapy. Requested to stay her at least 1 more day but she declined my offer. Written for aspirin, statin, Plavix was given. (2) HTN (hypertension) Is this a current diagnosis for this admission?: Yes Plan: 08/26/2019-on admission patient blood pressures are elevated latest blood pressure is 144/71. Improved. Plan is to start her on lisinopril 10 mg p.o. daily. We will watch for the kidney function. 08/27/19 blood pressures are much improved latest blood pressure is 115/70. Prescription for lisinopril 10 mg p.o. daily was given. - Additional Information Resuscitation Status: Full Code Discharge Diet: Cardiac Discharge Activity: Activity As Tolerated Prescriptions: Aspirin [Aspirin 81 mg Chewable Tablet] 81 mg PO DAILY #30 tab.chew Atorvastatin Calcium [Lipitor 40 mg Tablet] 40 mg PO QHS #30 tablet Clopidogrel Bisulfate [Plavix 75 mg Tablet] 75 mg PO DAILY #30 tablet Lisinopril [Prinivil 10 mg Tablet] 10 mg PO DAILY #30 tablet Home Medications: Aspirin [Aspirin 81 mg Chewable Tablet] 81 mg PO DAILY #30 tab.chew 08/27/19 Atorvastatin Calcium [Lipitor 40 mg Tablet] 40 mg PO QHS #30 tablet 08/27/19 Clopidogrel Bisulfate [Plavix 75 mg Tablet] 75 mg PO DAILY #30 tablet 08/27/19 Lisinopril [Prinivil 10 mg Tablet] 10 mg PO DAILY #30 tablet 08/27/19 History of Present Illiness History of Present Illness: YOSEF HOLLIS is a 68 year old female 68-year-old female with no significant past medical history. She has a normal baseline mental status and is completely independent. She presented with 3 hours of altered mental status, aphasia and weakness. Upon evaluation in the ED, her NIH stroke scale was 14. CAT scan showed no bleed. She was started on TPA and has shown some mild improvement in her mental status. She continues to have right-sided weakness with right-sided facial droop. She follows commands well but has expressive aphasia. Left-sided upper and lower extremity with normal strength. She was admitted to the intensive care unit due to TPA therapy and close monitoring. Hospital Course Hospital Course: 68-year-old female with no significant past medical history. She has a normal baseline mental status and is completely independent. She presented with 3 hours of altered mental status, aphasia and weakness. Upon evaluation in the ED, her NIH stroke scale was 14. CAT scan showed no bleed. She was started on TPA and has shown some mild improvement in her mental status. She continues to have right-sided weakness with right-sided facial droop. She follows commands well but has expressive aphasia. Left-sided upper and lower extremity with normal strength. She was admitted to the intensive care unit due to TPA therapy and close monitoring. 08/25/1933-63-owcs-old female with no significant past medical history came to the emergency room on August 22 around midnight with complaints of 3 hours of altered mental status, aphasia and weakness. Her NIH stroke scale is [address] scan did not show any bleed. Patient was given TPA and was admitted to ICU. Medical consult was called to downgrade the patient today. Patient's aphasia resolved right-sided weakness improving mild residual deficit in the right arm. Still have visual problems difficulty in reading. But she is able to count my fingers when I am standing 10 feet away. CTA of the head and neck are negative. Plan is to do the MRI of the brain today to start her on aspirin, Plavix and statins.Echocardiogram was requested and it is pending. OT PT consult was requested. To discontinue IV fluids. And to start on her blood pressure medications if the blood pressures are persistently high. On examination alert and awake communicating well. Pupils are equal and react to light accommodation. Neck was supple no JVD no carotid bruit. Chest bilateral entry was decreased no wheezing no crepitations. S1-S2 present. Abdominal bowel sounds are present. Extremities peripheral pulses are present no pedal edema. Plan is to downgrade her to IMCU today. To repeat the labs tomorrow. 08/26/19-08/26/[id number]-otld-old female with no significant past medical history admitted with aphasia, right-sided weakness, altered mental status. CT head is negative in the ER a TPA was given. CT a of the head and neck was done negative for acute pathology. MRI of the brain without contrast was done it indicates new infarct. Was started on aspirin, Plavix, statins 24 hours after administration of the TPA. PT OT consult was done physical therapy is working with the patient. This morning alert awake communicating well not in distress. Still have visual problems and slight droop on the left side of the face and mild weakness on the right upper arm. blood Pressures are stable. 08/27/2019-no acute events in the last 24 hours. Afebrile. Still have a slight problems with vision and few sensory deficits in the right side. Patient agreed to go home actually she wants to go home today and agreed to have a outpatient physical therapy. I encouraged her to stay at least another night but she declined. Physical Exam Vital Signs: Temp Pulse Resp BP Pulse Ox 98.1 F 71 19 126/45 H 93 08/27/19 07:45 08/27/19 08:00 08/27/19 08:00 08/27/19 08:00 08/27/19 08:00 Intake & Output 08/26/19 08/27/19 08/28/19 06:59 06:59 06:59 Intake Total 1240 720 Output Total 1540 850 Balance -300 -130 Weight 67.3 kg 65.8 kg 65.8 kg General appearance: PRESENT: no acute distress, well-developed Head exam: PRESENT: atraumatic Eye exam: PRESENT: PERRLA Mouth exam: PRESENT: dry mucosa Teeth exam: PRESENT: poor dentation Neck exam: ABSENT: carotid bruit, JVD, lymphadenopathy, thyromegaly Respiratory exam: PRESENT: decreased breath sounds Cardiovascular exam: PRESENT: RRR. ABSENT: diastolic murmur, rubs, systolic murmur Pulses: PRESENT: normal dorsalis pedis pul GI/Abdominal exam: PRESENT: normal bowel sounds, soft. ABSENT: distended, guarding, mass, organolmegaly, rebound, tenderness Rectal exam: PRESENT: deferred Extremities exam: PRESENT: full ROM. ABSENT: calf tenderness, clubbing, pedal edema Neurological exam: PRESENT: alert, awake, oriented to person, oriented to place, oriented to time, oriented to situation, CN II-XII grossly intact. ABSENT: motor sensory deficit Psychiatric exam: PRESENT: depressed Skin exam: PRESENT: dry, intact, warm. ABSENT: cyanosis, rash Results Laboratory Results: WBC 9.1 10^3/uL (4.0-10.5) 08/26/19 04:40 RBC 4.28 10^6/uL (3.72-5.28) 08/26/19 04:40 Hgb 13.6 g/dL (12.0-15.5) 08/26/19 04:40 Hct 39.2 % (36.0-47.0) 08/26/19 04:40 MCV 92 fl (80-97) 08/26/19 04:40 MCH 31.7 pg (27.0-33.4) 08/26/19 04:40 MCHC 34.6 g/dL (32.0-36.0) 08/26/19 04:40 RDW 13.7 % (11.5-14.0) 08/26/19 04:40 Plt Count 251 10^3/uL (150-450) 08/26/19 04:40 Lymph % (Auto) 36.9 % (13-45) 08/26/19 04:40 [place] % (Auto) 8.0 % (3-13) 08/26/19 04:40 Eos % (Auto) 4.7 % (0-6) 08/26/19 04:40 Baso % (Auto) 0.9 % (0-2) 08/26/19 04:40 Absolute Neuts (auto) 4.5 10^3/uL (1.7-8.2) 08/26/19 04:40 Absolute Lymphs (auto) 3.4 10^3/uL (0.5-4.7) 08/26/19 04:40 Absolute Monos (auto) 0.7 10^3/uL (0.1-1.4) 08/26/19 04:40 Absolute Eos (auto) 0.4 10^3/uL (0.0-0.6) 08/26/19 04:40 Absolute Basos (auto) 0.1 10^3/uL (0.0-0.2) 08/26/19 04:40 Seg Neutrophils % 49.5 % (42-78) 08/26/19 04:40 PT 12.1 SEC (11.4-15.4) 08/23/19 22:25 INR 0.90 08/23/19 22:25 APTT 22.5 SEC (23.5-35.8) L 08/23/19 22:25 Sodium 136.3 mmol/L (137-145) L 08/26/19 04:40 Potassium 4.2 mmol/L (3.6-5.0) 08/26/19 04:40 Chloride 103 mmol/L (98-107) 08/26/19 04:40 Carbon Dioxide 28 mmol/L (22-30) 08/26/19 04:40 Anion Gap 5 (5-19) 08/26/19 04:40 BUN 11 mg/dL (7-20) 08/26/19 04:40 Creatinine 0.60 mg/dL (0.52-1.25) 08/26/19 04:40 Est GFR ( Amer) > 60 (>60) 08/26/19 04:40 Est GFR (MDRD) Non-Af > 60 (>60) 08/26/19 04:40 Glucose 99 mg/dL (75-110) 08/26/19 04:40 POC Glucose 100 mg/dL (70-110) 08/24/19 23:54 Hemoglobin A1c % 5.7 % (4.7-6.0) 08/25/19 04:10 Calcium 9.2 mg/dL (8.4-10.2) 08/26/19 04:40 Phosphorus 3.7 mg/dL (2.5-4.5) 08/25/19 04:10 Magnesium 2.2 mg/dL (1.6-2.3) 08/26/19 04:40 Total Bilirubin 0.8 mg/dL (0.2-1.3) 08/26/19 04:40 Direct Bilirubin 0.0 mg/dL (0.0-0.4) 08/26/19 04:40 Neonat Total Bilirubin Not Reportable 08/26/19 04:40 Neonat Direct Bilirubin Not Reportable 08/26/19 04:40 Neonat Indirect Bili Not Reportable 08/26/19 04:40 AST 21 U/L (14-36) 08/26/19 04:40 ALT 13 U/L (<35) 08/26/19 04:40 Alkaline Phosphatase 71 U/L (38-126) 08/26/19 04:40 Creatine Kinase 38 U/L (55-170) L 08/23/19 22:25 CK-MB (CK-2) 0.60 ng/mL (<4.55) 08/23/19 22:25 Troponin I < 0.012 ng/mL 08/23/19 22:25 Total Protein 6.5 g/dL (6.3-8.2) 08/26/19 04:40 Albumin 4.0 g/dL (3.5-5.0) 08/26/19 04:40 Triglycerides 102 mg/dL (<150) 08/25/19 04:10 Cholesterol 263.90 mg/dL (0-200) H 08/25/19 04:10 LDL Cholesterol Direct 192 mg/dL (<100) H 08/25/19 04:10 VLDL Cholesterol 20.0 mg/dL (10-31) 08/25/19 04:10 HDL Cholesterol 62 mg/dL (>40) 08/25/19 04:10 Vitamin B12 303.0 pg/mL (239-931) 08/25/19 04:10 Folate 18.20 ng/mL (>2.76) 08/25/19 04:10 TSH 0.43 uIU/mL (0.47-4.68) L 08/25/19 04:10 Urine Color YELLOW 08/25/19 01:12 Urine Appearance SLIGHTLY-CLOUDY 08/25/19 01:12 Urine pH 5.0 (5.0-9.0) 08/25/19 01:12 Ur Specific [place] 1.029 08/25/19 01:12 Urine Protein 30 mg/dL (NEGATIVE) H 08/25/19 01:12 Urine Glucose (UA) NEGATIVE mg/dL (NEGATIVE) 08/25/19 01:12 Urine Ketones 80 mg/dL (NEGATIVE) H 08/25/19 01:12 Urine Blood SMALL (NEGATIVE) H 08/25/19 01:12 Urine Nitrite (Reflex) NEGATIVE (NEGATIVE) 08/25/19 01:12 Urine Bilirubin NEGATIVE (NEGATIVE) 08/25/19 01:12 Urine Urobilinogen NEGATIVE mg/dL (<2.0) 08/25/19 01:12 Leukocyte Esterase Rfl NEGATIVE (NEGATIVE) 08/25/19 01:12 Urine RBC (Auto) 11 /HPF 08/25/19 01:12 Urine WBC (Reflex) 2 /HPF 08/25/19 01:12 Urine Mucus (Auto) OCC /LPF 08/25/19 01:12 Urine Ascorbic Acid 40 (NEGATIVE) H 08/25/19 01:12 08/23/19 22:25 CK-MB (CK-2) 0.60 Troponin I < 0.012 Impressions: Chest X-Ray 08/23/19 22:24 IMPRESSION: 1. No acute pulmonary findings. Head CT 08/23/19 22:24 IMPRESSION: No acute intracranial process is identified. The cause of the patient's neurologic symptoms is not identified on this examination. Head CTA 08/24/19 00:00 IMPRESSION: NO CTA EVIDENCE OF STENOSIS OR ANEURYSM OF THE [place]. Neck CTA 08/24/19 00:00 IMPRESSION: NORMAL CTA OF THE EXTRA-CRANIAL CAROTID AND VERTEBRAL ARTERIES. Brain MRI with MRA 08/25/19 00:00 IMPRESSION: NORMAL MRA OF THE [place]. Head MRI 08/25/19 11:00 IMPRESSION: INVOLVING INFARCT IN THE MEDIAL LEFT OCCIPITAL AND TEMPORAL LOBE AND IN THE POSTERIOR LEFT THALAMUS. EVIDENCE OF ACUTE STROKE: YES. 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 Also arrangements were made for outpatient physical therapy. Time Spent: Greater than 30 Minutes Stroke Is this a Stroke Patient?: Yes Stroke Pt being discharged on Anti-thrombolytic therapy?: No Reason(s) for not prescribing Anti-thrombolytic therapy:: Not indicated Stroke Pt being discharged on Anti-coagulation therapy?: Yes Stroke Pt being discharged on Statins?: Yes Acute Heart Failure - Is this a Heart Failure Patient?: No
[2019-08-27 13:21] VITALS: BP 130/52
== END 2019-08-27 13:00 | disposition home health service (06) | DRG 62 ==
LOC: ER 22:21 → EDSEX 22:21 → EH 08-24 00:44 → ICU 08-24 02:06 → 3W 08-25 15:29
PROVIDERS: ADMIT Internal Medicine Critical Care Medicine; ATTEND Internal Medicine
DX: I63.89 Other cerebral infarction (principal); G81.91 Hemiplegia, unspecified affecting right dominant side; I10 Essential (primary) hypertension; R47.01 Aphasia; R29.714 NIHSS score 14; R29.810 Facial weakness; Z79.02 Long term (current) use of antithrombotics/antiplatelets; Z79.82 Long term (current) use of aspirin; Z79.899 Other long term (current) drug therapy; Z88.2 Allergy status to sulfonamides; Z91.013 Allergy to seafood
CPT/HCPCS: 36415; 70450; 70496; 70498; 70544; 70551; 71045; 80048; 80053; 80061; 81001; 82550; 82553; 82607; 82746; 82962; 83036; 83735; 84100; 84443; 84484; 85025; 85027; 85610; 85730; 93005; 93010; 93306; 96374; 96375; 99291; 99292; J2405; J2997; J3490; J7120

== ENCOUNTER 2019-11-24 12:58 | Emergency (ER) | payer MEDICARE ==
--- NOTE | 2019-11-24 13:02 | ER Document Report ---
ED General - General Stated Complaint: POSSIBLE STROKE Time Seen by Provider: 11/24/19 12:59 Primary Care Provider: HASEEB SERRANO PA-C [Primary Care Provider] - Follow up as needed Notes: 69-year-old female presents with slurred speech onset 1030 this morning witnessed by . History of recent stroke unknown deficits per EMS. She was flailing around but not seizing when they found her and is now more calm. She is having trouble speaking but says yes when asked if she is having trouble speaking. Per her they were driving here, got here, and she began having trouble speaking with tremor on the right side. This is different than her last drink. Left occipital stroke in the past not on blood thinners. No recent surgeries no recent bleeding. - Related Data Allergies/Adverse Reactions: Penicillins Allergy (Severe, Verified 02/24/16 12:07) Anaphylaxis Sulfa (Sulfonamide Antibiotics) Allergy (Unknown, Verified 02/24/16 12:07) Anaphylaxis Past Medical History - General Information source: Patient, Relative - Social History Smoking Status: Former Smoker Family History: None Past Surgical History: Reports: Hx Orthopedic Surgery - right rotator cuff Review of Systems - Review of Systems Notes: REVIEW OF SYSTEMS Limited: Aphasia PHYSICAL EXAMINATION General: No acute distress, well-nourished Head: Atraumatic, normocephalic ENT: Mouth normal, oropharynx moist, no exudates or tonsillar enlargement Eyes: Conjunctiva normal, pupils equal, lids normal Neck: No JVD, supple, no guarding CVS: Normal rate, regular rhythm, no murmurs Resp: No resp distress, equal and normal breath sounds bilaterally GI: Nondistended, soft, no tenderness to palpation, no rebound or guarding Ext: No deformities, no edema, normal range of motion in upper and lower ext Back: No CVA or midline TTP Skin: No rash, warm Lymphatic: No lymphadeopathy noted Neuro: In both upper arms right greater than left, stuttering/slurred speech. Requires loud voice to be aroused. Face is symmetric.. Take stroke score 6. Severe right-sided dysmetria upper and lower extremity. Stuttering/dysarthria severe rate score 1 Course - Re-evaluation Re-evalutation: 11/24/19 13:54 Patient seen by me on arrival for code stroke. Has new deficits Extensive review of chart peer extensive discussion with patient and . Well within the window for IV TPA. For some reason though it appears she should be, she is not on a blood thinner. Her blood pressure is under control and she has no other contraindications to IV TPA. There is tachycardia by nurse and it was administered. Called [facility] for transfer. Reassessed. Symptoms are unchanged. No evidence of ongoing seizure. Discussed with Alanna Herrera at [facility] from neurology who accept the patient transfer. Attending will be under Jack - Laboratory Result Diagrams: 11/24/19 13:15 11/24/19 13:15 Laboratory results interpreted by me: 11/24/19 11/24/19 13:15 13:15 Eos % (Auto) 8.4 H Absolute Eos (auto) 0.7 H Potassium 5.1 H Glucose 113 H Critical Care Note - Critical Care Note Total time excluding time spent on procedures (mins): 71 Comments: The above patient is critically ill. Not including procedures, but including direct re-evaluations, speaking with patient and/or consultants, interpreting results, and documenting, I spent the total amount of minute listed listed above on critical care time Discharge - Discharge Clinical Impression: Acute embolic stroke Condition: Critical Disposition: [facility] Referrals: HASEEB SERRANO PA-C [Primary Care Provider] - Follow up as needed
[2019-11-24] MEDS ORDERED: ALTEPLASE INJ 100 MG VIAL ONE (13:20)
[2019-11-24 13:26] LABS: PARTIAL THROMBOPLASTIN TIME 24.3 SEC (23.5-35.8)
--- NOTE | 2019-11-24 13:26 | RADIOLOGY REPORT (SQ) ---
EXAM DESCRIPTION: CT HEAD WITHOUT IMAGES COMPLETED DATE/TIME: 11/24/2019 1:09 pm REASON FOR STUDY: slurred speech COMPARISON: 08/23/2019, 08/24/2019, 08/25/2019 TECHNIQUE: Axial images acquired through the brain without intravenous contrast. Images reviewed wi th bone, brain and subdural windows. Additional sagittal and coronal reconstructions were generated. Images stored on PACS. All CT scanners at this facility use dose modulation, iterative reconstruction, and/or weight based d osing when appropriate to reduce radiation dose to as low as reasonably achievable (ALARA). [facility]: Dose Right [facility]: CareDose [facility]: Dose Right [facility]: Teradose 4D [facility]: [employer] RADIATION DOSE: CT Rad equipment meets quality standard of care and radiation dose reduction techniq ues were employed. CTDIvol: 53.2 mGy. DLP: 1017 mGy-cm. mGy. LIMITATIONS: None. FINDINGS: VENTRICLES: Normal size and contour. CEREBRUM: No masses. No hemorrhage. No midline shift. No evidence for acute infarction. Interval d evelopment of encephalomalacia involving the left occipital lobe. Otherwise normal vincent-white matter differentiation and attenuation. CEREBELLUM: No masses. No hemorrhage. No alteration of density. No evidence for acute infarction. EXTRAAXIAL SPACES: No fluid collections. No masses. ORBITS AND GLOBE: No intra- or extraconal masses. Normal contour of globe without masses. CALVARIUM: No fracture. PARANASAL SINUSES: No fluid or mucosal thickening. SOFT TISSUES: No mass or hematoma. OTHER: No other significant finding. IMPRESSION: Left occipital lobe encephalomalacia in area of previous ischemic injury. No evidence o f acute or subacute large territory ischemic injury. No intracranial hemorrhage. EVIDENCE OF ACUTE STROKE: NO. COMMENT: Pertinent positive or negative findings of the imaging study reported as a CRITICAL EXAM t o RADHA VELA MD at13:17 on 11/24/2019. Category of Critical Exam: Stroke code Quality ID # [id number]: Final reports with documentation of one or more dose reduction techniques (e.g., Au tomated exposure control, adjustment of the mA and/or kV according to patient size, use of iterative reconstruction technique) TECHNICAL DOCUMENTATION: JOB ID: [id number] 2010 [employer]- All Rights Reserved Reading location - IP/workstation name: [email or web address]
[2019-11-24 13:27] LABS: ABSOLUTE BASOPHILS # (AUTO) 0.1 10^3/uL (0.0-0.2); ABSOLUTE EOSINOPHILS # (AUTO) 0.7 10^3/uL (0.0-0.6); ABSOLUTE LYMPHOCYTES (AUTO) 2.1 10^3/uL (0.5-4.7); ABSOLUTE MONOCYTES (AUTO) 0.9 10^3/uL (0.1-1.4); ABSOLUTE NEUT (AUTO) 4.3 10^3/uL (1.7-8.2); BASOPHILS % (AUTO) 0.9 % (0-2); EOSINOPHILS % (AUTO) 8.4 % (0-6); HEMATOCRIT 37.8 % (36.0-47.0); HEMOGLOBIN 12.8 g/dL (12.0-15.5); LYMPHOCYTES % (AUTO) 25.9 % (13-45); MEAN CORPUSCULAR HEMOGLOBIN 31.1 pg (27.0-33.4); MEAN CORPUSCULAR HGB CONC 33.8 g/dL (32.0-36.0); MEAN CORPUSCULAR VOLUME 92 fl (80-97); MONOCYTES % (AUTO) 11.2 % (3-13); PLATELET COUNT 337 10^3/uL (150-450); RED BLOOD COUNT 4.11 10^6/uL (3.72-5.28); RED CELL DISTRIBUTION WIDTH 13.9 % (11.5-14.0); SEGMENTED NEUTROPHILS % (AUTO) 53.6 % (42-78); TOTAL CELLS COUNTED % (AUTO) 100 %; WHITE BLOOD COUNT 7.9 10^3/uL (4.0-10.5)
--- NOTE | 2019-11-24 13:28 | RADIOLOGY REPORT (SQ) ---
EXAM DESCRIPTION: CHEST SINGLE VIEW IMAGES COMPLETED DATE/TIME: 11/24/2019 1:12 pm REASON FOR STUDY: slurred speech COMPARISON: 08/23/2019 EXAM PARAMETERS: NUMBER OF VIEWS: One view. TECHNIQUE: Single frontal radiographic view of the chest acquired. RADIATION DOSE: NA LIMITATIONS: None. FINDINGS: LUNGS AND PLEURA: No opacities, masses or pneumothorax. No pleural effusion. MEDIASTINUM AND HILAR STRUCTURES: No masses. Contour normal. HEART AND VASCULAR STRUCTURES: Heart normal in size. Normal vasculature. BONES: No acute findings. HARDWARE: None in the chest. OTHER: No other significant finding. IMPRESSION: NO ACUTE RADIOGRAPHIC FINDING IN THE CHEST. TECHNICAL DOCUMENTATION: JOB ID: [id number] 2010 [employer]- All Rights Reserved Reading location - IP/workstation name: [email or web address]
[2019-11-24 13:29] LABS: INTERNATIONAL RATION (INR) 0.95; PROTHROMBIN TIME 12.7 SEC (11.4-15.4)
[2019-11-24 13:43] LABS: ALBUMIN 4.4 g/dL (3.5-5.0); ALKALINE PHOSPHATASE 83 U/L (38-126); ANION GAP 6 (5-19); ASPARTATE AMINO TRANSFERASE 24 U/L (14-36); BILIRUBIN,TOTAL 0.5 mg/dL (0.2-1.3); BLOOD UREA NITROGEN 18 mg/dL (7-20); CALCIUM 9.9 mg/dL (8.4-10.2); CARBON DIOXIDE 30 mmol/L (22-30); CHLORIDE 102 mmol/L (98-107); CREATINE KINASE 31 U/L (30-135); GLUCOSE 113 mg/dL (75-110); POTASSIUM 5.1 mmol/L (3.6-5.0); TOTAL PROTEIN 7.2 g/dL (6.3-8.2)
[2019-11-24 14:11] LABS: CREATINE KINASE MB 0.46 ng/mL (<4.55)
[2019-11-24 14:13] LABS: TROPONIN I < 0.012 ng/mL
[2019-11-24 14:17] VITALS: BP 146/62
--- NOTE | 2019-11-24 18:11 | EKG REPORT ---
SEVERITY:- BORDERLINE ECG - SINUS RHYTHM SHORT NH INTERVAL, ACCELERATED AV CONDUCTION BORDERLINE T ABNORMALITIES, ANT-LAT LEADS : Confirmed by: Cheo Ding MD 24-Nov-2019 18:11:22
== END 2019-11-24 13:52 | disposition short-term general hospital (02) ==
LOC: ER 12:58
DX: I63.9 Cerebral infarction, unspecified (principal); R47.1 Dysarthria and anarthria; R25.1 Tremor, unspecified; R29.706 NIHSS score 6; Z87.891 Personal history of nicotine dependence; Z87.892 Personal history of anaphylaxis; Z88.0 Allergy status to penicillin; Z88.2 Allergy status to sulfonamides
CPT/HCPCS: 93005; 99291; 37195; 36415; 82553; 82550; 85025; 85610; 85730; 80053; 84484; 71045; 70450; 93010; J2997